=== PATIENT | female | born 1995 | race American Indian/Alaskan Native ===

== ENCOUNTER 2016-05-18 09:49 | Emergency (ER) | payer MEDICAID ==
[2016-05-18 09:49] VITALS: BMI 21.6
[2016-05-18 10:09] VITALS: TEMP 98.5
[2016-05-18 10:11] VITALS: RESP 18
[2016-05-18] MEDS ORDERED: TDAP Vaccine 0.5 mL Syr IM ONE (10:56)
[2016-05-18] MEDS ORDERED: Naproxen 550 mg Tab PO STA (10:56)
[2016-05-18] MEDS ORDERED: Tmp-Smz 800 mg-160 mg DS Tab PO STA (10:56)
--- NOTE | 2016-05-18 11:02 | ED PDOC ---
Arrival/HPI - General Chief Complaint: Abnormal Skin Integrity Time Seen by Provider: 05/18/16 10:06 Historian: Patient - History of Present Illness Narrative History of Present Illness (Text): 05/18/16 10:57 Patient complains of a painful mass of gradually increasing size of the sacral area for the past 4 days. Patient states that she has had similar symptoms in the past which required incision and drainage several years ago. Otherwise: (- ) foreign body, (-) fever, (-) chills, (-) recent antibiotic use. tetanus not UTD PMD Yoon Past Medical History - Provider Review Nursing Documentation Reviewed: Yes - Travel History Have you recently traveled outside [place] w/in the past 3 mons?: Yes - Infectious Disease Hx of Infectious Diseases: None - Tetanus Immunization Tetanus Immunization: Unknown - Reproductive Menopause: No - Psychiatric Hx Substance Use: No - Anesthesia Hx Anesthesia: No Hx Anesthesia Reactions: No Hx Malignant Hyperthermia: No Family/Social History - Physician Review Nursing Documentation Reviewed: Yes Family/Social History: No Known Family HX Smoking Status: Never Smoked Hx Alcohol Use: Yes Hx Substance Use: No Allergies/Home Meds Allergies/Adverse Reactions: Allergies No Known Allergies Allergy (Verified 05/18/16 10:09) Review of Systems - Review of Systems Constitutional: Normal. absent: Fatigue, Fevers Musculoskeletal: Normal. absent: Arthralgias, Back Pain Skin: Normal. absent: Rash, Pruritis Physical Exam - Physical Exam Narrative Physical Exam (Text): 05/18/16 10:58 GENERAL APPEARANCE: Patient is awake, alert, oriented x 3, in mild painful distress. Skin: warm and dry, +3 x 4 skin colored, non-erythematous, tender, non- fluctuant abscess to the L sacral area with no surrounding cellulitis. Pulmonary: lungs clear, no rhonchi, no wheezing. Cardiac: regular rate and rhythm, no murmur, no gallop. Abdomen: soft nontender. Extremities: no deformity, full range of motion, no tenderness. Vital Signs Temp Pulse Resp BP Pulse Ox 05/18/16 11:08 74 18 114/72 99 05/18/16 10:10 98.5 F 85 18 90/67 L 98 05/18/16 10:05 98.5 F 85 19 90/67 L 96 Medical Decision Making ED Course and Treatment: 05/18/16 10:59 20 yo F c/o sacral abscess x 4 days, with no other symptoms. Uhcg (-). Plan: -- Tdap IM -- Keflex / Bactrim -- Naprosyn -- Uhcg -- I&D if needed based on clinical exam Prior to procedure "time out" was called in order to confirm the correct patient and procedure. Through aseptic technique an 18 gauge needle was inserted into the abscess, which produced no purulent material. Clean dressing was applied. Patient advised to apply warm compresses and to take antibiotics as prescribed. At this time, since no purulent material was expressed, will not do an I&D. Based on history and exam plan will be for outpatient follow-up. Prescription provided. Patient states she fully agrees with and understands discharge instructions. States that she agrees with the plan and disposition. Verbalized and repeated discharge instructions and plan. I have given the patient opportunity to ask any additional questions. Follow up with primary care physician in 1-2 days without fail. Advised to take medication as prescribed. Return to the emergency room at any time for any new or worsening symptoms. - Medication Orders Current Medication Orders: Discontinued Medications Cephalexin Monohydrate (Keflex) 500 mg PO STAT STA PRN Reason: Protocol Stop: 05/18/16 10:57 Last Admin: 05/18/16 11:14 Dose: 500 MG Naproxen (Anaprox Ds) 550 mg PO ONCE STA Stop: 05/18/16 10:57 Last Admin: 05/18/16 11:14 Dose: 550 MG Tetanus/Reduced Diphtheria/Acell Pertussis (Boostrix Vaccine Inj) 0.5 ml IM .ONCE ONE Stop: 05/18/16 10:57 Last Admin: 05/18/16 11:14 Dose: 0.5 ML [facility] Immunization Data Document 05/18/16 11:14 [facility] (Rec: 05/18/16 11:15 [email or web address]) Immunization Data Vaccine Lot Number [id number] Vaccine Expiration Date 05/09/18 Site Given Right Deltoid Route Intramuscular Trimethoprim/Sulfamethoxazole (Bactrim Ds Tab) 2 tab PO STAT STA PRN Reason: Protocol Stop: 05/18/16 10:57 Last Admin: 05/18/16 11:14 Dose: 2 TAB - PA / [employer]OTIONS ASSOCIATE / Resident Statement / has reviewed & agrees with the documentation as recorded. Disposition/Present on Arrival - Present on Arrival Any Indicators Present on Arrival: No History of DVT/PE: No History of Uncontrolled Diabetes: No Urinary Catheter: No History of Decub. Ulcer: No History Surgical Site Infection Following: None - Disposition Have Diagnosis and Disposition been Completed?: Yes Diagnosis: Abscess Disposition: HOME/ ROUTINE Disposition Time: 11:03 Patient Plan: Discharge Condition: GOOD Discharge Instructions (ExitCare): Abscess (ED) Print Language: PASHTO Additional Instructions: Thank you for letting us take care of you today. You were treated for sacral abscess. The emergency medical care you received today was directed at your acute symptoms. If you were prescribed any medication, please fill it and take as directed. It may take several days for your symptoms to resolve. Return to the Emergency Department if your symptoms worsen, do not improve, or if you have any other problems. Please contact your doctor in 2 days for re-evaluation and follow up. Bring any paperwork you were given at discharge with you along with any medications you are taking to your follow up visit. Our treatment cannot replace ongoing medical care by a primary care provider (PCP) outside of the emergency department. Thank you for allowing the [facility] team to be part of your care today. Prescriptions: Sulfamethoxazole/Trimethoprim [Bactrim DS 800 mg-160 mg] 2 tab PO BID #28 tab Cephalexin [Keflex] 500 mg PO Q6 #28 capsule Naproxen 500 mg PO BID #30 tab Referrals: Eric Yoon Jr., MD [Primary Care Provider] - Follow up with primary Forms: WORK NOTE
[2016-05-18 11:08] VITALS: BP 114/72; PULSE 74; O2SAT 99
== END 2016-05-18 11:22 | disposition home or self-care (01) ==
LOC: ED 09:49
DX: L02.212 Cutaneous abscess of back [any part, except buttock and flank] (principal)